=== PATIENT | female | born 1985 | race Caucasian/White ===

== ENCOUNTER 2017-03-26 00:33 | Observation (INO) | payer OTHER ==
[2017-03-26] MEDS ORDERED: SODIUM CHLORIDE 0.9% 500 ML IV STA (01:08)
[2017-03-26] MEDS ORDERED: SODIUM CHLORIDE 0.9% 1,000 ML IV STA (01:08)
[2017-03-26] MEDS ORDERED: RX INFO: IV CONTRAST WAS GIVEN 1 EACH MISC MISCELLANE PRN (01:08)
[2017-03-26 01:48] LABS: Basophils % (A) 1 %; CHCM 33.9; Eosinophils # (A) 0.3 k/uL (0-0.7); Eosinophils % (A) 4 %; HCT 38.6 % (34.0-46.0); HDW 2.36; HGB 12.8 gm/dL (11.4-16.0); Luc # (Auto) 0.13; Luc % (Auto) 2; Lymphocytes # (A) 2.4 k/uL (1.0-4.8); Lymphocytes % (A) 41 %; MCH 31.3 pg (25.0-35.0); MCHC 33.1 g/dL (31.0-37.0); MCV 94.8 fL (80.0-100.0); Mean Platelet Volume 7.5; Monocytes # (A) 0.4 k/uL (0-1.0); Monocytes % (A) 6 %; Neutrophils # (A) 2.6 k/uL (1.3-7.7); Neutrophils % (A) 46 %; RBC 4.07 m/uL (3.80-5.40); RDW 13.5 % (11.5-15.5); WBC 5.8 k/uL (3.8-10.6); WBC (Perox) 5.97
--- NOTE | 2017-03-26 02:17 | ED ---
GI Bleed HPI - General Chief complaint: GI Bleed Stated complaint: Rectal Bleed Time Seen by Provider: 03/26/17 00:58 Source: patient, EMS Mode of arrival: EMS Limitations: no limitations - History of Present Illness Initial comments: This 32-year-old white female presents with a complaint of some rectal bleeding. She apparently had a polypectomy done at our hospital yesterday. She denies any known complications. She went back to a normal diet today. During this past evening she apparently started having some blood per rectum. She states that it is Somewhat worse over the past several hours. She was seen at [facility] emergency department apparently was tachycardic initially. They gave her some fluids and her heart rate came down. Her hemoglobin was stable at 13. She also complains of occasional abdominal cramping and had occasional rectal cramping which is been minimal. She denies any fevers or chills. There is no nausea or vomiting. No other complaints or modifying factors. [facility] did discuss case with GI and they recommended transferring her here for further treatment. - Related Data Home Medications Medication Instructions Recorded Confirmed Acetaminophen Tab [Tylenol] 1,000 mg PO Q6H PRN 06/01/16 06/01/16 Pnv,Calcium 72/Iron/Folic Acid 1 tab PO DAILY 06/01/16 06/01/16 [ Plus Tablet] Allergies Allergy/AdvReac Type Severity Reaction Status Date / Time ciprofloxacin [From Cipro] Allergy Rash/Hives Verified 06/01/16 23:05 Sulfa (Sulfonamide Allergy Rash/Hives Verified 06/01/16 23:05 Antibiotics) Review of Systems ROS Statement: Those systems with pertinent positive or pertinent negative responses have been documented in the HPI. ROS Other: All systems not noted in ROS Statement are negative. Past Medical History Past Medical History: No Reported History History of Any Multi-Drug Resistant Organisms: None Reported Past Surgical History: No Surgical Hx Reported Additional Past Surgical History / Comment(s): colonscopy with polyp removal Past Psychological History: No Psychological Hx Reported Smoking Status: Current every day smoker Past Alcohol Use History: None Reported Past Drug Use History: None Reported General Exam - General Exam Comments Initial Comments: GENERAL: The patient is well nourished and well hydrated. VITAL SIGNS: Heart rate, blood pressure, respiratory rate reviewed as recorded in nurse's notes. EYES: Pupils are round and reactive. Extraocular movements are intact. No conjunctival / lid redness or swelling. ENT: No external evidence of injury, swelling, or ecchymosis. Airway is patent. Throat is clear. NECK: Nontender. No swelling or evidence of injury. No subcutaneous emphysema. Trachea is midline. No thyroid mass. HEART: Regular rate and rhythm. Good peripheral pulses. LUNGS/CHEST: Breath sounds clear and equal bilaterally. No rales, rhonchi, or wheezes. No ecchymosis, subcutaneous emphysema, or tenderness. ABDOMEN: Abdomen soft without tenderness. No palpable masses or organomegaly. No peritoneal signs. No abdominal wall swelling or ecchymosis. EXTREMITIES: No extremity tenderness. Normal muscle tone and function. No thoracolumbar tenderness. NEUROLOGIC: Sensation is grossly intact. Cranial nerve exam reveals face is symmetrical, tongue is midline, speech is clear. SKIN: No abrasions or ecchymosis is noted. No induration or masses noted. PSYCHIATRIC: Alert and oriented. Appropriate behavior and judgment. Limitations: no limitations Course Vital Signs 03/26/17 03/26/17 03/26/17 00:40 00:47 01:59 Temperature 97.8 F Pulse Rate 78 58 L 60 Respiratory 18 16 18 Rate Blood Pressure 144/91 124/84 140/80 O2 Sat by Pulse 97 98 95 Oximetry 03/26/17 02:33 Temperature Pulse Rate 55 L Respiratory 18 Rate Blood Pressure 137/81 O2 Sat by Pulse 98 Oximetry Medical Decision Making - Medical Decision Making The patient was seen and examined. Records were reviewed from [facility]. Repeat hemoglobin shows a value of 12.8 which is still stable. She receives some mild fluid hydration. A computed tomography scan of the abdomen and pelvis is done. This does show some fluid in the colon which could be potentially hemorrhagic. It does not show any evidence of perforation or other acute findings. It is felt as though she would require admission to the hospital and further GI consultation. The case will be discussed with internal medicine in the near future. - Lab Data Result diagrams: 03/26/17 01:24 Lab Results 03/26/17 Range/Units 01:24 WBC 5.8 (3.8-10.6) k/uL RBC 4.07 (3.80-5.40) m/uL Hgb 12.8 (11.4-16.0) gm/dL Hct 38.6 (34.0-46.0) % MCV 94.8 (80.0-100.0) fL MCH 31.3 (25.0-35.0) pg MCHC 33.1 (31.0-37.0) g/dL RDW 13.5 (11.5-15.5) % Plt Count 275 (150-450) k/uL Neutrophils % 46 % Lymphocytes % 41 % Monocytes % 6 % Eosinophils % 4 % Basophils % 1 % Neutrophils # 2.6 (1.3-7.7) k/uL Lymphocytes # 2.4 (1.0-4.8) k/uL Monocytes # 0.4 (0-1.0) k/uL Eosinophils # 0.3 (0-0.7) k/uL Basophils # 0.0 (0-0.2) k/uL Disposition Clinical Impression: Rectal bleeding, Post-polypectomy bleeding, Abdominal cramping Disposition: ADMITTED IP TO THIS [facility] Condition: Fair Time of Disposition: : Decision Date: 03/26/17 Decision Time: 02:17
[2017-03-26] MEDS ORDERED: ONDANSETRON 4 MG/2 ML VIAL IVP PRN (02:18)
[2017-03-26] MEDS ORDERED: NALOXONE 0.4 MG/ML 1 ML VIAL IV PRN (02:18)
[2017-03-26] MEDS ORDERED: MORPHINE SULFATE 2 MG/ML SYRINGE IV PRN (02:18)
[2017-03-26] MEDS ORDERED: ACETAMINOPHEN TAB 325 MG TAB PO PRN (02:18)
--- NOTE | 2017-03-26 02:54 | CT ---
EXAM: CT Abdomen and Pelvis With Intravenous Contrast CLINICAL HISTORY: Reason: GI bleed and abd pain s/p polypectomy RLQ abd pain TECHNIQUE: Axial computed tomography images of the abdomen and pelvis with intravenous contrast. DLP is 336.40 mGy-cm. This CT exam was performed using one or more of the following dose reduction techniques: automated exposure control, adjustment of the mA and/or kV according to patient size, and/or use of iterative reconstruction technique. COMPARISON: No prior studies available. FINDINGS: Gallbladder contracted and not well evaluated. Renal scarring. Nonobstructive renal calcifications. Some of these appear associated with suspected cysts in the left kidney though there are bilateral nonobstructive renal stones suspected. Low-density liver lesions too small to characterize. No evidence for acute pancreatitis or other significant abnormality of solid viscera appreciated. No bowel obstruction. No evidence for appendicitis. No free air. No free fluid. Nonspecific fluid in GI tract. This includes some areas of high density fluid in the distal colon. Cannot rule out some of this represents hemorrhagic fluid. Portions of bowel underdistended limiting evaluation for wall thickening. No perienteric inflammatory changes. Areas of questionable wall thickening of bowel, example distal colon versus underdistention. Correlate for any evidence of colitis/proctitis. Imaged lung bases clear. Mild degenerative changes osseous structures. IMPRESSION: Nonspecific fluid in GI tract. This includes some areas of high density fluid in the distal colon. Cannot rule out some of this represents hemorrhagic fluid. Portions of bowel underdistended limiting evaluation for wall thickening. No perienteric inflammatory changes. Areas of questionable wall thickening of bowel, example distal colon versus underdistention. Correlate for any evidence of colitis/proctitis. Of note, no evidence for right-sided colitis is appreciated in this patient with reported right lower quadrant pain. No appendicitis. Nonobstructive renal calcifications and other findings, as above.
[2017-03-26 03:58] VITALS: RESP 16
[2017-03-26 04:13] VITALS: BMI 20.5
[2017-03-26] MEDS: 0.9% NACL WITH KCL 20 MEQ/L 1,000 ML IV SCH ×2 (04:18→13:21)
[2017-03-26] MEDS ORDERED: NA PHOS,M-B/NA PHOS,DI-BA 133 ML ENEMA RECTAL ONE ×2 (06:45→07:00)
[2017-03-26 07:53] LABS: Basophils % (A) 1 %; CH 31.3; CHCM 32.9; Eosinophils # (A) 0.2 k/uL (0-0.7); Eosinophils % (A) 4 %; HCT 37.9 % (34.0-46.0); HDW 2.42; HGB 12.7 gm/dL (11.4-16.0); Luc # (Auto) 0.11; Luc % (Auto) 2; Lymphocytes # (A) 2.5 k/uL (1.0-4.8); Lymphocytes % (A) 55 %; MCH 31.9 pg (25.0-35.0); MCHC 33.4 g/dL (31.0-37.0); MCV 95.4 fL (80.0-100.0); Mean Platelet Volume 6.7; Monocytes # (A) 0.2 k/uL (0-1.0); Monocytes % (A) 4 %; Neutrophils # (A) 1.5 k/uL (1.3-7.7); Neutrophils % (A) 34 %; RBC 3.97 m/uL (3.80-5.40); RDW 12.8 % (11.5-15.5); WBC 4.6 k/uL (3.8-10.6); WBC (Perox) 4.46
[2017-03-26] MEDS ORDERED: fentaNYL (PF) 50 MCG/ML 2 ML AMP ONE (08:02)
[2017-03-26] MEDS ORDERED: MIDAZOLAM 2 MG/2 ML VIAL ONE (08:02)
[2017-03-26] MEDS ORDERED: PROPOFOL 10 MG/ML 20 ML VIAL IV ONE (08:02)
[2017-03-26] MEDS ORDERED: SODIUM CHLORIDE 0.9% 1,000 ML IV ONE (08:02)
[2017-03-26 08:10] LABS: Manual Review Performed
--- NOTE | 2017-03-26 08:23 | P.PCN ---
Date of Procedure: 03/26/17 Preoperative Diagnosis: Postoperative Diagnosis: Procedure(s) Performed: BRIEF HISTORY: Patient is a 32-year-old pleasant white female, scheduled for flexible sigmoidoscopy as endoscopy as part of evaluation of post polypectomy lower GI bleed. The patient underwent an elective colonoscopy at [facility] 2 days ago and was noted to have a 2 cm polyp in the proximal rectum that was removed by snare polypectomy. She presents last night to the emergency room with severe rectal bleeding and dizziness and was transferred to [facility]. Her initial hemoglobin was 13.8 and dropped to 12.7 g/dL. Because of ongoing bleeding she is scheduled for flexible sigmoid scope for control of bleeding. PROCEDURE PERFORMED: Flexible sigmoidoscopy with resolution clip placement PREOPERATIVE DIAGNOSIS: Post-polypectomy lower GI bleed. IV sedation per Anesthesia. PROCEDURE: After informed consent was obtained, the patient, was brought into the endoscopy unit. IV sedation was administered by Anesthesia under continuous monitoring. Digital rectal examination was normal. Initially the Olympus CF- 160 flexible video colonoscope was then inserted in the rectum, gradually advanced into the splenic flexure. Careful examination was performed as the scope was gradually being withdrawn. Mucosa of the descending colon, sigmoid colon, appeared normal. The previous polypectomy site was visualized in the proximal rectum at 12 cm from the anal verge and there was a visible vessel with active oozing identified. At this time 2 resolution clips were deployed with complete hemostasis. Patient tolerated the procedure well. Retroflexion was performed in the rectum and no lesions were seen. The patient tolerated the procedure well. IMPRESSION: Active oozing in the proximal rectum at the site of recent polypectomy status post resolution clip placement with good hemostasis RECOMMENDATIONS: Findings of this examination were discussed with the patient . She will be continued on a clear liquid diet today and repeat CBC in 6 hours. If it remains stable she can be discharged home later today with outpatient follow-up in 2 weeks. Implants: Indications for Procedure: Operative Findings: Description of Procedure:
[2017-03-26] MEDS ORDERED: PRENATAL VIT-IRON-FOLIC ACID 1 EACH CAP PO SCH (09:00)
--- NOTE | 2017-03-26 10:34 | CONS ---
Reason for consultation: Acute lower gastrointestinal bleed. HISTORY OF PRESENT ILLNESS: The patient is a 32 -year-old pleasant lady who underwent elective upper endoscopy as well as colonoscopy at [facility] on March 24 as part of evaluation of intermittent rectal bleeding, abdominal pain and change in bowel habits associated with nausea and vomiting of several months duration. Upper endoscopy revealed gastritis. Colonoscopy revealed a 2 cm polyp in the rectosigmoid colon. Last night came into the emergency room at [facility] with bright red blood per rectum. She had two large episodes of bloody bowel movements and became somewhat hypertensive and dizzy. She was transferred from [place] emergency room to [facility] for further evaluation. Initial hemoglobin was 13.5, this morning it is 12.7 gmDL. She had about 3 bloody bowel movements through the night almost every three to four hours. This morning the last one was about an hour ago and had about 100 mL of bright red blood per rectum. She complains of crampy lower abdominal pain. No nausea or vomiting. No fever, chills or night sweats. Past medical history is unremarkable. Medications at home are Tylenol prn. ALLERGIES TO SULFA AND CIPRO. SOCIAL HISTORY: No history of smoking. No alcohol use. FAMILY HISTORY: Unremarkable. REVIEW OF SYSTEMS: Cardiopulmonary: She denied any chest pain or shortness of breath. : no dysuria or hematuria. Musculoskeletal: Unremarkable. Skin: Unremarkable. Endocrine: Unremarkable. Psychiatric: Unremarkable. Neurological : Unremarkable. ENT/vision: unremarkable. Constitutional: No recent weight loss. No fevers, chills or night sweats. On physical examination, blood pressure 110/64, pulse rate 62, temperature 97.8 , HEENT: Examination unremarkable. Conjunctivae pink. Sclerae anicteric. Oral cavity no lesions. Neck no JVD or lymph node enlargement. Chest clear to auscultation. Heart regular rate and rhythm. Abdomen soft, bowel sounds are positive. No organomegaly. Extremities: No pedal edema. Skin no rashes. Neurological: She is alert and oriented times three. No focal deficits. Labs from this morning: WBC 5.8, hemoglobin 12.8, platelets are 275. test is negative. IMPRESSION: Acute post polypectomy lower gastrointestinal bleed. The patient is status post colonoscopy two days ago and was noted to have a 2 cm polyp in the rectosigmoid colon that was removed by snare polypectomy. 36 hours later she presented with acute lower gastrointestinal bleed most likely related to post polypectomy bleed. Last hemoglobin 12.7 gmDL. RECOMMENDATIONS: 1. Keep NPO. 2. We will proceed with flexible sigmoidoscopy to control post polypectomy bleed. I discussed with the patient, the risks benefits and complications and she is agreeable to it. Thank you for this consultation. LUC
[2017-03-26 14:12] LABS: Basophils % (A) 1 %; CH 31.6; Eosinophils # (A) 0.2 k/uL (0-0.7); Eosinophils % (A) 5 %; HDW 2.37; HGB 10.8 gm/dL (11.4-16.0); Luc # (Auto) 0.07; Luc % (Auto) 2; Lymphocytes # (A) 1.9 k/uL (1.0-4.8); Lymphocytes % (A) 51 %; MCH 31.5 pg (25.0-35.0); MCHC 32.8 g/dL (31.0-37.0); MCV 96.2 fL (80.0-100.0); Mean Platelet Volume 7.7; Monocytes # (A) 0.2 k/uL (0-1.0); Monocytes % (A) 5 %; Neutrophils # (A) 1.3 k/uL (1.3-7.7); Neutrophils % (A) 35 %; RBC 3.43 m/uL (3.80-5.40); RDW 13.5 % (11.5-15.5); WBC 3.6 k/uL (3.8-10.6); WBC (Perox) 3.87
[2017-03-26 15:17] VITALS: BP 116/84; PULSE 60; TEMP 97.4
--- NOTE | 2017-03-26 19:50 | HP ---
DATE OF ADMISSION: 03/25/17 HISTORY AND PHYSICAL/DISCHARGE SUMMARY CHIEF COMPLAINT: Lower gastrointestinal bleeding. HISTORY OF PRESENT ILLNESS: This 32-year-old woman being followed by no primary care physician in the outpatient setting was admitted after rectal bleeding. The patient recently had a colonoscopy and polypectomy by Dr. Rodriguez recently in [facility]. The patient had bleeding last night and the patient went to [facility] and the patient subsequently referred to [facility] for further evaluation and treatment. The hemoglobin was found to be 10.8. The patient was seen by Dr. Noe Rodriguez who performed colonoscopy as well as resolution for active oozing and site of the recent polypectomy. There is no history of any fevers, rigors or chills. No history of any headache, loss of consciousness or seizures. Past medical history of recent polypectomy. Otherwise smoking. Medications prior to admission are: Home medications are reviewed and include : None. ALLERGIES: CIPRO AND SULFA. FAMILY HISTORY: No history of heart disease or strokes in the family. SOCIAL HISTORY: History of smoking on a daily basis. No history of alcohol intake. REVIEW OF SYSTEMS: HEENT: No diminished vision. No diminished hearing. Cardiovascular system: No angina or palpitations. Respiratory: As mentioned earlier. GI: Nausea or vomiting. : No dysuria. Nervous system: No numbness, weakness. Allergy/Immunology: No asthma or hayfever. Musculoskeletal: As mentioned earlier. Hematology/oncology: No history of anemia. Endocrine. No history of diabetes mellitus or hypothyroidism. Constitutional: As mentioned earlier. Dermatology: Negative. Rheumatology: Negative. Psychiatry: As mentioned earlier. PHYSICAL EXAMINATION: The patient is alert and oriented times three. Pulse 59. Blood pressure 111/67. Respiratory rate 16, temperature 97.5 degrees. Pulse ox 95% on room air. HEENT: Conjunctivae normal. NECK: No JVD. Cardiovascular: S1, S2 muffled. No S3, no S4. Respiratory: Breath sounds diminished at the bases. No rhonchi and no crackles. Abdomen is soft. Nontender. No mass palpable. Legs: No edema. No swelling. Nervous system : Higher functions as mentioned earlier. Moves all four limbs. No focal deficits. Lymphatics: No lymph nodes palpable in the neck, axillae or groin. SKIN: No ulcer, rash or bleeding. LABS: WBC 3.5, hemoglobin 10.8. ASSESSMENT: 1. Acute lower gastrointestinal bleeding secondary from polypectomy. 2. Acute blood loss anemia secondary to lower gastrointestinal bleeding. 3. Status post colonoscopy and resolution clip placement. 4. Continued ongoing nicotine dependence. 5. FULL CODE. RECOMMENDATIONS AND DISCUSSION: In this 32 -year-old woman who presented with multiple complex medical issues, we will monitor the patient closely. Continue the current medications. Continue symptomatic treatment. Hemoglobin is showing some anemia but rather stable. Dr. Rodriguez has as before. The patient will be discharged with the following advice and medications: 1. Diet is cardiac, soft. Low residual. 2. Activity limited until follow-up. 3. Follow-up with primary care physician in two to three days. 4. Follow-up with repeat labs, CBC. 5. Follow-up with Dr. Rodriguez as advised. [facility]
== END 2017-03-26 15:50 | disposition home or self-care (01) ==
LOC: EC 00:33 → INTOOBSV 02:18 → 4MS4W 02:18
PROVIDERS: ADMIT Internal Medicine; ATTEND Internal Medicine
DX: K62.5 Hemorrhage of anus and rectum (principal); K91.840 Postprocedural hemorrhage of a digestive system organ or structure following a digestive system procedure; R10.30 Lower abdominal pain, unspecified; K29.70 Gastritis, unspecified, without bleeding; R03.0 Elevated blood-pressure reading, without diagnosis of hypertension; R11.2 Nausea with vomiting, unspecified; R19.4 Change in bowel habit; R00.0 Tachycardia, unspecified; R42 Dizziness and giddiness; Z87.19 Personal history of other diseases of the digestive system; Z86.010 Personal history of colon polyps; Z88.2 Allergy status to sulfonamides; Z88.1 Allergy status to other antibiotic agents; Y83.8 Other surgical procedures as the cause of abnormal reaction of the patient, or of later complication, without mention of misadventure at the time of the procedure; F17.200 Nicotine dependence, unspecified, uncomplicated
CPT/HCPCS: 96360; 96361; 99285; 36415; 85025; 84703; 74177; 45382; G0378; J2250; J3010; Q9967; J2704

== ENCOUNTER 2020-01-28 13:41 | Emergency (ER) | payer OTHER ==
[2020-01-28] MEDS ORDERED: SODIUM CHLORIDE 0.9% 1,000 ML IV STA (14:21)
[2020-01-28] MEDS ORDERED: FAMOTIDINE 20 MG/2 ML VIAL IV STA (14:22)
[2020-01-28] MEDS ORDERED: MAG HYDROX/AL HYDROX/SIMETH 30 ML, HYOSCYAMINE ELIXIR 10 ML, LIDOCAINE VISCOUS 2% 10 ML PO STA ×3 (14:23)
[2020-01-28] MEDS ORDERED: ONDANSETRON 4 MG/2 ML VIAL IVP STA (14:23)
--- NOTE | 2020-01-28 14:26 | ED ---
General Adult HPI - General Chief complaint: Nausea/Vomiting/Diarrhea Stated complaint: diarrhea Time Seen by Provider: 01/28/20 14:07 Source: patient, RN notes reviewed Mode of arrival: ambulatory Limitations: no limitations - History of Present Illness Initial comments: 34-year-old female without any significant past medical history presents to the emergency department for a chief complaint of nausea diarrhea and abdominal pain. Patient states she has had these symptoms over the past weekend. She states that she was seen in [place] yesterday for this and had a negative CAT scan obtained. Patient states she has actually had mucousy stools for quite some time and had a colonoscopy which showed a polyp. She had followed up with Dr. Rodriguez for this and was scheduled to have another colonoscopy next month. Patient states that the pain seems to be in her upper abdomen. Patient reports that eating worsens this pain. States every time she she seems to have an attack. States she is having loose yellow E mucousy diarrhea. She has not v omited but has been nauseous.Patient has no other complaints at this time including shortness of breath, chest pain, vomiting, headache, or visual changes. - Related Data Previous Rx's Medication Instructions Recorded Dicyclomine [Bentyl] 20 mg PO TID PRN #20 tablet 01/28/20 Ondansetron [Zofran ODT] 4 mg PO Q8HR PRN #15 tab 01/28/20 Pantoprazole Sodium [Protonix] 40 mg PO DAILY #14 tablet. 01/28/20 Allergies Allergy/AdvReac Type Severity Reaction Status Date / Time ciprofloxacin [From Cipro] Allergy Rash/Hives Verified 01/28/20 13:50 Iodinated Contrast Media Allergy Unknown Verified 01/28/20 13:50 shellfish derived [Shellfish] Allergy Unknown Verified 01/28/20 13:50 Sulfa (Sulfonamide Allergy Rash/Hives Verified 01/28/20 13:50 Antibiotics) Review of Systems ROS Statement: Those systems with pertinent positive or pertinent negative responses have been documented in the HPI. ROS Other: All systems not noted in ROS Statement are negative. Past Medical History Past Medical History: No Reported History History of Any Multi-Drug Resistant Organisms: None Reported Past Surgical History: No Surgical Hx Reported Additional Past Surgical History / Comment(s): colonscopy with polyp removal 03/24/17 Past Psychological History: Anxiety Smoking Status: Current every day smoker Past Alcohol Use History: None Reported Past Drug Use History: None Reported General Exam Limitations: no limitations General appearance: alert, in no apparent distress Head exam: Present: atraumatic, normocephalic, normal inspection Eye exam: Present: normal appearance, PERRL, EOMI. Absent: scleral icterus, c onjunctival injection, periorbital swelling ENT exam: Present: normal exam, mucous membranes moist Neck exam: Present: normal inspection, full ROM. Absent: tenderness, meningismus, lymphadenopathy Respiratory exam: Present: normal lung sounds bilaterally. Absent: respiratory distress, wheezes, rales, rhonchi, stridor Cardiovascular Exam: Present: regular rate, normal rhythm, normal heart sounds. Absent: systolic murmur, diastolic murmur, rubs, gallop, clicks GI/Abdominal exam: Present: soft, tenderness (epigastric tenderness, no LUQ tenderness, no signficant RUQ tendenress), normal bowel sounds. Absent: distended, guarding, rebound, rigid Course Vital Signs 01/28/20 01/28/20 01/28/20 13:45 15:56 16:34 Temperature 98.4 F Pulse Rate 122 H 113 H 93 Respiratory 18 20 Rate Blood Pressure 106/75 145/82 O2 Sat by Pulse 97 100 Oximetry EKG Findings - EKG Comments: EKG Findings:: Normal sinus rhythm, ventricular rate 79, MO interval 124, QTC 433 Medical Decision Making - Medical Decision Making Vitals are stable. Patient initially tachycardic however is having. Anxiety. This did improve throughout her stay and her EKG was 79. She presents for multiple complaints. Patient initially presented for abdominal pain with nausea diarrhea. Abdominal pain is upper. Patient states she has "attacks" when she eats. No abdominal surgeries. Abdomen is tender in the epigastric area. CBC CMP unremarkable. Amylase and lipase are within normal limits. Ultrasound shows no evidence of gallstones. There is a 9 mm hepatic cyst. X-ray KUB does show overall nonspecific but strongly favor nonobstructive bowel gas pattern. I reviewed patient's CT from a 01/27/2020 at 1851 which revealed bilateral nephrolithiasis without hydronephrosis or evidence of ureteral calculus. Patient is ALLERGIC to contrast so this was done without contrast. Patient was given Pepcid which did help with her symptoms. As pain is upper abdominal EKG was performed which showed normal sinus rhythm. Chest x-ray showed no acute process. Troponin and d-dimer are both negative. As patient has had this upper abdominal pain for days troponin should be accurate. Patient reevaluated and is feeling well enough to go home. Patient will follow up with her GI doctor and will also be given the name of surgeon as this could be related to gallbladder bladder given postprandial pain. She will be put on Protonix. She will also be given Zofran and Bentyl. Stool culture ordered outpatient as patient was unable to give a sample here. If she has worsening symptoms she will return to the emergency department. At this time patient is starting oral intake and is well to go home. I discussed this case with attending Dr. Cheema who agrees with this assessment and treatment plan. - Lab Data Result diagrams: 01/28/20 14:50 01/28/20 14:50 Lab Results 01/28/20 01/28/20 01/28/20 Range/Units 14:50 14:50 14:50 WBC 4.0 (3.8-10.6) k/uL RBC 4.91 (3.80-5.40) m/uL Hgb 15.5 (11.4-16.0) gm/dL Hct 45.1 (34.0-46.0) % MCV 91.8 (80.0-100.0) fL MCH 31.6 (25.0-35.0) pg MCHC 34.4 (31.0-37.0) g/dL RDW 12.4 (11.5-15.5) % Plt Count 220 (150-450) k/uL Neutrophils % 58 % Lymphocytes % 32 % Monocytes % 6 % Eosinophils % 2 % Basophils % 0 % Neutrophils # 2.3 (1.3-7.7) k/uL Lymphocytes # 1.3 (1.0-4.8) k/uL Monocytes # 0.2 (0-1.0) k/uL Eosinophils # 0.1 (0-0.7) k/uL Basophils # 0.0 (0-0.2) k/uL D-Dimer (<0.60) mg/L FEU Sodium 139 (137-145) mmol/L Potassium 3.9 (3.5-5.1) mmol/L Chloride 101 (98-107) mmol/L Carbon Dioxide 27 (22-30) mmol/L Anion Gap 11 mmol/L BUN 9 (7-17) mg/dL Creatinine 0.67 (0.52-1.04) mg/dL Est GFR (CKD-EPI)AfAm >90 (>60 ml/min/1.73 sqM) Est GFR (CKD-EPI)NonAf >90 (>60 ml/min/1.73 sqM) Glucose 89 (74-99) mg/dL Calcium 10.2 (8.4-10.2) mg/dL Total Bilirubin 0.8 (0.2-1.3) mg/dL AST 23 (14-36) U/L ALT 19 (4-34) U/L Alkaline Phosphatase 81 (38-126) U/L Troponin I <0.012 (0.000-0.034) ng/mL Total Protein 8.3 H (6.3-8.2) g/dL Albumin 5.0 (3.5-5.0) g/dL Amylase 56 (30-110) U/L Lipase 168 (23-300) U/L HCG, Qual Not Detected Urine Color Urine Appearance (Clear) Urine pH (5.0-8.0) Ur Specific [place] (1.001-1.035) Urine Protein (Negative) Urine Glucose (UA) (Negative) Urine Ketones (Negative) Urine Blood (Negative) Urine Nitrite (Negative) Urine Bilirubin (Negative) Urine Urobilinogen (<2.0) mg/dL Ur Leukocyte Esterase (Negative) 01/28/20 01/28/20 Range/Units 14:50 15:00 WBC (3.8-10.6) k/uL RBC (3.80-5.40) m/uL Hgb (11.4-16.0) gm/dL Hct (34.0-46.0) % MCV (80.0-100.0) fL MCH (25.0-35.0) pg MCHC (31.0-37.0) g/dL RDW (11.5-15.5) % Plt Count (150-450) k/uL Neutrophils % % Lymphocytes % % Monocytes % % Eosinophils % % Basophils % % Neutrophils # (1.3-7.7) k/uL Lymphocytes # (1.0-4.8) k/uL Monocytes # (0-1.0) k/uL Eosinophils # (0-0.7) k/uL Basophils # (0-0.2) k/uL D-Dimer 0.18 (<0.60) mg/L FEU Sodium (137-145) mmol/L Potassium (3.5-5.1) mmol/L Chloride (98-107) mmol/L Carbon Dioxide (22-30) mmol/L Anion Gap mmol/L BUN (7-17) mg/dL Creatinine (0.52-1.04) mg/dL Est GFR (CKD-EPI)AfAm (>60 ml/min/1.73 sqM) Est GFR (CKD-EPI)NonAf (>60 ml/min/1.73 sqM) Glucose (74-99) mg/dL Calcium (8.4-10.2) mg/dL Total Bilirubin (0.2-1.3) mg/dL AST (14-36) U/L ALT (4-34) U/L Alkaline Phosphatase (38-126) U/L Troponin I (0.000-0.034) ng/mL Total Protein (6.3-8.2) g/dL Albumin (3.5-5.0) g/dL Amylase (30-110) U/L Lipase (23-300) U/L HCG, Qual Urine Color Colorless Urine Appearance Clear (Clear) Urine pH 7.0 (5.0-8.0) Ur Specific [place] 1.002 (1.001-1.035) Urine Protein Negative (Negative) Urine Glucose (UA) Negative (Negative) Urine Ketones Negative (Negative) Urine Blood Negative (Negative) Urine Nitrite Negative (Negative) Urine Bilirubin Negative (Negative) Urine Urobilinogen <2.0 (<2.0) mg/dL Ur Leukocyte Esterase Negative (Negative) Disposition Clinical Impression: Abdominal pain, Diarrhea Disposition: HOME SELF-CARE Condition: Good Instructions (If sedation given, give patient instructions): Acute Nausea and Vomiting (ED) Additional Instructions: Please take Protonix as directed. Take Zofran as needed for nausea. Take Bentyl as needed for abdominal cramping. Follow-up with GI, surgery, and your primary care doctor. Make sure to attend your appointment with her primary care doctor on . Obtain stool sample for outpatient lab. If any symptoms worsen then return here to the emergency room. Prescriptions: Dicyclomine [Bentyl] 20 mg PO TID PRN #20 tablet PRN Reason: abdominal pain Pantoprazole Sodium [Protonix] 40 mg PO DAILY #14 tablet. Ondansetron [Zofran ODT] 4 mg PO Q8HR PRN #15 tab PRN Reason: Nausea Is patient prescribed a controlled substance at d/c from ED?: No Referrals: Norah Conner NPC [REFERRING] - 1-2 days Kwaku Boyd MD [STAFF PHYSICIAN] - 1-2 days Time of Disposition: 17:25
[2020-01-28 15:06] LABS: Basophils % (A) 0 %; Eosinophils # (A) 0.1 k/uL (0-0.7); Eosinophils % (A) 2 %; HCT 45.1 % (34.0-46.0); HGB 15.5 gm/dL (11.4-16.0); Lymphocytes # (A) 1.3 k/uL (1.0-4.8); Lymphocytes % (A) 32 %; MCH 31.6 pg (25.0-35.0); MCHC 34.4 g/dL (31.0-37.0); MCV 91.8 fL (80.0-100.0); Mean Platelet Volume 7.2; Monocytes # (A) 0.2 k/uL (0-1.0); Monocytes % (A) 6 %; Neutrophils # (A) 2.3 k/uL (1.3-7.7); Neutrophils % (A) 58 %; Platelet Count 220 k/uL (150-450); RBC 4.91 m/uL (3.80-5.40); RDW 12.4 % (11.5-15.5)
[2020-01-28 15:17] LABS: ALT 19 U/L (4-34); AST 23 U/L (14-36); African American GFR (CKD) >90 (>60 ml/min/1.73 sqM); Alkaline Phosphatase 81 U/L (38-126); Amylase 56 U/L (30-110); Anion Gap 11 mmol/L; Blood Urea Nitrogen 9 mg/dL (7-17); Calcium 10.2 mg/dL (8.4-10.2); Carbon Dioxide 27 mmol/L (22-30); Chloride 101 mmol/L (98-107); Glucose 89 mg/dL (74-99); Non-African American GFR(CKD) >90 (>60 ml/min/1.73 sqM); Potassium 3.9 mmol/L (3.5-5.1); Sodium 139 mmol/L (137-145); Total Bilirubin 0.8 mg/dL (0.2-1.3); Total Protein 8.3 g/dL (6.3-8.2)
--- NOTE | 2020-01-28 15:39 | US ---
EXAMINATION TYPE: US gallbladder DATE OF EXAM: 01/28/2020 COMPARISON: NONE CLINICAL HISTORY: pain. Pain EXAM MEASUREMENTS: Liver Length: 13.2 cm Gallbladder Wall: .2 cm CBD: .3 cm Right Kidney: 9.8 x 3.7 x 5.2 cm Pancreas: wnl Liver: Cystic area in right lobe measuring .8 x .9 x .6 cm Gallbladder: wnl Evidence for sonographic Dupont's sign: No CBD: wnl Right Kidney: wnl IMPRESSION: 1. There is a 9 mm hepatic cyst. 2. No evidence of gallstones.
[2020-01-28 15:47] LABS: Appearance,Urine Clear (Clear); Bilirubin,Urine Negative (Negative); Blood,Urine Negative (Negative); Color,Urine Colorless; Glucose,Urine (UA) Negative (Negative); Ketones,Urine Negative (Negative); Leukocyte Esterase,Urine Negative (Negative); Nitrite,Urine Negative (Negative); Protein,Urine Negative (Negative); Specific Gravity,Urine 1.002 (1.001-1.035); Urobilinogen,Urine <2.0 mg/dL (<2.0)
[2020-01-28 16:08] LABS: HCG,Qualitative Serum Not Detected
--- NOTE | 2020-01-28 16:27 | XR ---
EXAMINATION TYPE: XR KUB DATE OF EXAM: 01/28/2020 4:18 PM CLINICAL HISTORY: Abdominal pain. Nausea vomiting and diarrhea with diminished appetite. TECHNIQUE: Two Upright KUB images of the abdomen are obtained. COMPARISON: CT abdomen and pelvis March 26, 2017 FINDINGS: Some paucity of bowel gas. Air-fluid level within nondistended stomach. Gas seen in nondist ended small bowel loops in the mid to lower abdomen and pelvis. Gas seen in nondistended colon along the periphery of the pelvis. There is 4 mm nonobstructing left renal calculus medially and 2 to 3 mm tiny calculi suspected lower pole of the left kidney near the L4 vertebra. Lung bases are clear. No p neumoperitoneum. Hepatosplenomegaly are now thought present. Osseous structures are intact. IMPRESSION: Overall nonspecific but strongly favor nonobstructive bowel gas pattern. Persistent left-sided nephro lithiasis. Possible new hepatosplenomegaly, correlate clinically.
--- NOTE | 2020-01-28 16:28 | XR ---
EXAMINATION TYPE: XR chest 2V DATE OF EXAM: 01/28/2020 COMPARISON: NONE HISTORY: Chest and abdominal pain. TECHNIQUE: Frontal and lateral views of the chest are obtained. FINDINGS: Mild to moderate biapical pleural/parenchymal scarring There is no focal air space opacity, pleural effusion, or pneumothorax seen. The cardiac silhouette size is within normal limits. Slight underlying scoliotic curvature. IMPRESSION: No acute cardiopulmonary process.
[2020-01-28 17:40] VITALS: BP 116/75; PULSE 79; RESP 18; TEMP 98.1
== END 2020-01-28 17:48 | disposition home or self-care (01) ==
LOC: EC 13:41 → SUPCPDRO 13:41 → EC 17:48
DX: R10.9 Unspecified abdominal pain (principal); R19.7 Diarrhea, unspecified; R11.0 Nausea; R10.816 Epigastric abdominal tenderness; K76.89 Other specified diseases of liver; F17.200 Nicotine dependence, unspecified, uncomplicated; Z88.1 Allergy status to other antibiotic agents; Z88.2 Allergy status to sulfonamides; Z91.041 Radiographic dye allergy status; Z91.013 Allergy to seafood
CPT/HCPCS: 36415; 71046; 74018; 76705; 80053; 81003; 82150; 83690; 84484; 84703; 85025; 85379; 93005; 96361; 96374; 99285

== ENCOUNTER 2020-01-30 11:42 | Emergency (ER) | payer OTHER ==
[2020-01-30 11:53] VITALS: RESP 16
[2020-01-30] MEDS ORDERED: SODIUM CHLORIDE 0.9% 1,000 ML IV STA (12:41)
--- NOTE | 2020-01-30 12:55 | ED ---
Abdominal Pain HPI - General Chief Complaint: Abdominal Pain Stated Complaint: poss gallbladder problems-revisit Time Seen by Provider: 01/30/20 11:59 Source: patient Mode of arrival: ambulatory Limitations: no limitations - History of Present Illness Initial Comments: 34-year-old female patient presents to the emergency department today for evaluation of abdominal discomfort and diarrhea. Patient states she's been having symptoms for the last 6-7 days. States she is unable to eat. States she has been drinking without difficulty. This is her fourth emergency department visit for these symptoms. Patient was seen twice at [facility] this is her second visit here. She has had CT of the abdomen and pelvis which was reportedly negative. She had negative gallbladder ultrasound. Patient has not taken any medication for her symptoms, states that she does not like to take medication and does not want to mask the problem. She denies any fever or chills. States her pain is intermittent and spasmodic. States she states is a burning in her eyes and sinuses and then the pain will start her abdomen. States shortly after the pain began she develops diarrhea. States that his been yellow and watery. States there is mucus present. She did complete a prescription for Augmentin approximately a month ago. Denies any recent travel or sick contacts. Patient denies any recent rash, cough, shortness of breath, chest pain, back pain, numbness, tingling, dizziness, weakness, hematuria, dysuria, urinary urgency, urinary frequency, headache, visual changes, or any other complaints. - Related Data Home Medications Medication Instructions Recorded Confirmed Ergocalciferol [Vitamin D2] 50,000 unit PO TH 01/30/20 01/30/20 Previous Rx's Medication Instructions Recorded Dicyclomine [Bentyl] 20 mg PO TID PRN #20 tablet 01/28/20 Ondansetron [Zofran ODT] 4 mg PO Q8HR PRN #15 tab 01/28/20 Pantoprazole Sodium [Protonix] 40 mg PO DAILY #14 tablet. 01/28/20 Diphenoxylate HCl/Atropine 2 tab PO QID PRN 3 Days #24 tab 01/30/20 [Lomotil 2.5-0.025 mg Tablet] Allergies Allergy/AdvReac Type Severity Reaction Status Date / Time ciprofloxacin [From Cipro] Allergy Rash/Hives Verified 01/30/20 14:08 Iodinated Contrast Media Allergy Unknown Verified 01/30/20 14:08 shellfish derived [Shellfish] Allergy Unknown Verified 01/30/20 14:08 Sulfa (Sulfonamide Allergy Rash/Hives Verified 01/30/20 14:08 Antibiotics) Review of Systems ROS Statement: Those systems with pertinent positive or pertinent negative responses have been documented in the HPI. ROS Other: All systems not noted in ROS Statement are negative. Past Medical History Past Medical History: No Reported History History of Any Multi-Drug Resistant Organisms: None Reported Past Surgical History: No Surgical Hx Reported Additional Past Surgical History / Comment(s): colonscopy with polyp removal 03/24/17 Past Psychological History: Anxiety Smoking Status: Current every day smoker Past Alcohol Use History: None Reported Past Drug Use History: None Reported General Exam Limitations: no limitations General appearance: alert, in no apparent distress, other (This is a well- developed, well-nourished adult female patient in no acute distress. Vital signs upon presentation are temperature 98.5F, pulse 89, respirations 16, blood pressure 104/69, pulse ox 98% on room air.) Eye exam: Present: normal appearance, PERRL, EOMI. Absent: scleral icterus, conjunctival injection, periorbital swelling ENT exam: Present: normal exam, normal oropharynx, mucous membranes moist Respiratory exam: Present: normal lung sounds bilaterally. Absent: respiratory distress, wheezes, rales, rhonchi, stridor Cardiovascular Exam: Present: regular rate, normal rhythm, normal heart sounds. Absent: systolic murmur, diastolic murmur, rubs, gallop, clicks GI/Abdominal exam: Present: soft, tenderness (Right mid abdomen. Midepigastric.), normal bowel sounds. Absent: distended, guarding, rebound, rigid Neurological exam: Present: alert, oriented X3, CN II-XII intact Psychiatric exam: Present: normal affect, normal mood Skin exam: Present: warm, dry, intact, normal color. Absent: rash Course Vital Signs 01/30/20 11:49 Temperature 98.5 F Pulse Rate 89 Respiratory 16 Rate Blood Pressure 104/69 O2 Sat by Pulse 98 Oximetry Medical Decision Making - Medical Decision Making 34-year-old female patient presents to the emergency department today for evaluation of diarrhea and abdominal pain. Patient has had symptoms for the last 6-7 days. No hematochezia or melena. Patient has not tried medication to help her symptoms. Physical examination reveals some right-sided abdominal tenderness. Labs reviewed and are unremarkable. Urinalysis negative. Patient has been seen in the emergency department 4 times during this illness, she has had CT which was negative, ultrasound of the gallbladder which was negative. We did perform C. diff which was negative today, stools been sent for culture. She is instructed to follow-up with her primary care physician for recheck in 1- 2 days. She does have an appointment with a it investment/portfolio manager on 02/11/2020. Return parameters were discussed in detail. She verbalizes understanding and agrees with this plan. - Lab Data Result diagrams: 01/30/20 13:00 01/30/20 13:00 Lab Results 01/30/20 01/30/20 01/30/20 Range/Units 13:00 13:00 13:00 WBC 3.3 L (3.8-10.6) k/uL RBC 4.32 (3.80-5.40) m/uL Hgb 13.5 (11.4-16.0) gm/dL Hct 39.8 (34.0-46.0) % MCV 92.2 (80.0-100.0) fL MCH 31.2 (25.0-35.0) pg MCHC 33.9 (31.0-37.0) g/dL RDW 12.4 (11.5-15.5) % Plt Count 205 (150-450) k/uL Neutrophils % 51 % Lymphocytes % 36 % Monocytes % 8 % Eosinophils % 2 % Basophils % 0 % Neutrophils # 1.7 (1.3-7.7) k/uL Lymphocytes # 1.2 (1.0-4.8) k/uL Monocytes # 0.3 (0-1.0) k/uL Eosinophils # 0.1 (0-0.7) k/uL Basophils # 0.0 (0-0.2) k/uL Sodium (137-145) mmol/L Potassium (3.5-5.1) mmol/L Chloride (98-107) mmol/L Carbon Dioxide (22-30) mmol/L Anion Gap mmol/L BUN (7-17) mg/dL Creatinine (0.52-1.04) mg/dL Est GFR (CKD-EPI)AfAm (>60 ml/min/1.73 sqM) Est GFR (CKD-EPI)NonAf (>60 ml/min/1.73 sqM) Glucose (74-99) mg/dL Plasma Lactic Acid Solitario (0.7-2.0) mmol/L Calcium (8.4-10.2) mg/dL Total Bilirubin (0.2-1.3) mg/dL AST (14-36) U/L ALT (4-34) U/L Alkaline Phosphatase (38-126) U/L Total Protein (6.3-8.2) g/dL Albumin (3.5-5.0) g/dL Amylase (30-110) U/L Lipase (23-300) U/L Urine Color Colorless Urine Appearance Clear (Clear) Urine pH 6.5 (5.0-8.0) Ur Specific [place] 1.002 (1.001-1.035) Urine Protein Negative (Negative) Urine Glucose (UA) Negative (Negative) Urine Ketones Negative (Negative) Urine Blood Negative (Negative) Urine Nitrite Negative (Negative) Urine Bilirubin Negative (Negative) Urine Urobilinogen <2.0 (<2.0) mg/dL Ur Leukocyte Esterase Negative (Negative) Urine HCG, Qual Not Detected (Not Detectd) C. difficile (EIA) Intrp (Negative) 01/30/20 01/30/20 01/30/20 Range/Units 13:00 13:00 13:41 WBC (3.8-10.6) k/uL RBC (3.80-5.40) m/uL Hgb (11.4-16.0) gm/dL Hct (34.0-46.0) % MCV (80.0-100.0) fL MCH (25.0-35.0) pg MCHC (31.0-37.0) g/dL RDW (11.5-15.5) % Plt Count (150-450) k/uL Neutrophils % % Lymphocytes % % Monocytes % % Eosinophils % % Basophils % % Neutrophils # (1.3-7.7) k/uL Lymphocytes # (1.0-4.8) k/uL Monocytes # (0-1.0) k/uL Eosinophils # (0-0.7) k/uL Basophils # (0-0.2) k/uL Sodium 138 (137-145) mmol/L Potassium 3.7 (3.5-5.1) mmol/L Chloride 101 (98-107) mmol/L Carbon Dioxide 27 (22-30) mmol/L Anion Gap 10 mmol/L BUN 8 (7-17) mg/dL Creatinine 0.68 (0.52-1.04) mg/dL Est GFR (CKD-EPI)AfAm >90 (>60 ml/min/1.73 sqM) Est GFR (CKD-EPI)NonAf >90 (>60 ml/min/1.73 sqM) Glucose 89 (74-99) mg/dL Plasma Lactic Acid Solitario 0.7 (0.7-2.0) mmol/L Calcium 9.8 (8.4-10.2) mg/dL Total Bilirubin 0.7 (0.2-1.3) mg/dL AST 20 (14-36) U/L ALT 14 (4-34) U/L Alkaline Phosphatase 75 (38-126) U/L Total Protein 7.7 (6.3-8.2) g/dL Albumin 4.7 (3.5-5.0) g/dL Amylase 51 (30-110) U/L Lipase 147 (23-300) U/L Urine Color Urine Appearance (Clear) Urine pH (5.0-8.0) Ur Specific [place] (1.001-1.035) Urine Protein (Negative) Urine Glucose (UA) (Negative) Urine Ketones (Negative) Urine Blood (Negative) Urine Nitrite (Negative) Urine Bilirubin (Negative) Urine Urobilinogen (<2.0) mg/dL Ur Leukocyte Esterase (Negative) Urine HCG, Qual (Not Detectd) C. difficile (EIA) Intrp Negative (Negative) Disposition Clinical Impression: Diarrhea, Abdominal pain Disposition: HOME SELF-CARE Condition: Good Instructions (If sedation given, give patient instructions): Acute Diarrhea (ED), Abdominal Pain (ED) Additional Instructions: Increase fluids. Start bland diet and advance as tolerated. Take medications as directed. Follow-up with your primary care physician for recheck in 1-2 days. Return to the emergency department immediately for any new, worsening, or concerning symptoms. Prescriptions: Diphenoxylate HCl/Atropine [Lomotil 2.5-0.025 mg Tablet] 2 tab PO QID PRN 3 Days #24 tab PRN Reason: Diarrhea Is patient prescribed a controlled substance at d/c from ED?: No Referrals: Shalom Lomeli MD [Primary Care Provider] - 1-2 days Time of Disposition: 15:38
[2020-01-30 13:19] LABS: Basophils % (A) 0 %; Eosinophils # (A) 0.1 k/uL (0-0.7); Eosinophils % (A) 2 %; HCT 39.8 % (34.0-46.0); HGB 13.5 gm/dL (11.4-16.0); Lymphocytes # (A) 1.2 k/uL (1.0-4.8); Lymphocytes % (A) 36 %; MCH 31.2 pg (25.0-35.0); MCHC 33.9 g/dL (31.0-37.0); MCV 92.2 fL (80.0-100.0); Mean Platelet Volume 7.1; Monocytes # (A) 0.3 k/uL (0-1.0); Monocytes % (A) 8 %; Neutrophils # (A) 1.7 k/uL (1.3-7.7); Neutrophils % (A) 51 %; Platelet Count 205 k/uL (150-450); RBC 4.32 m/uL (3.80-5.40); RDW 12.4 % (11.5-15.5); WBC 3.3 k/uL (3.8-10.6)
[2020-01-30 13:22] LABS: Appearance,Urine Clear (Clear); Bilirubin,Urine Negative (Negative); Blood,Urine Negative (Negative); Color,Urine Colorless; Glucose,Urine (UA) Negative (Negative); Ketones,Urine Negative (Negative); Leukocyte Esterase,Urine Negative (Negative); Nitrite,Urine Negative (Negative); PH, Urine 6.5 (5.0-8.0); Protein,Urine Negative (Negative); Specific Gravity,Urine 1.002 (1.001-1.035); Urobilinogen,Urine <2.0 mg/dL (<2.0)
[2020-01-30 13:29] LABS: ALT 14 U/L (4-34); AST 20 U/L (14-36); African American GFR (CKD) >90 (>60 ml/min/1.73 sqM); Albumin 4.7 g/dL (3.5-5.0); Alkaline Phosphatase 75 U/L (38-126); Amylase 51 U/L (30-110); Anion Gap 10 mmol/L; Blood Urea Nitrogen 8 mg/dL (7-17); Calcium 9.8 mg/dL (8.4-10.2); Carbon Dioxide 27 mmol/L (22-30); Chloride 101 mmol/L (98-107); Glucose 89 mg/dL (74-99); Non-African American GFR(CKD) >90 (>60 ml/min/1.73 sqM); Potassium 3.7 mmol/L (3.5-5.1); Sodium 138 mmol/L (137-145); Total Bilirubin 0.7 mg/dL (0.2-1.3); Total Protein 7.7 g/dL (6.3-8.2)
[2020-01-30 16:17] VITALS: BP 118/70; PULSE 76; TEMP 97.8
== END 2020-01-30 16:16 | disposition home or self-care (01) ==
LOC: EC 11:42
DX: R10.13 Epigastric pain (principal); R19.7 Diarrhea, unspecified; H57.10 Ocular pain, unspecified eye; F17.200 Nicotine dependence, unspecified, uncomplicated; Z88.1 Allergy status to other antibiotic agents; Z88.2 Allergy status to sulfonamides; Z91.041 Radiographic dye allergy status; Z91.013 Allergy to seafood
CPT/HCPCS: 36415; 80053; 81003; 81025; 82150; 83605; 83630; 83690; 85025; 87045; 87046; 87324; 96360; 99284